=== PATIENT | female | born 1995 | race Two or more races ===

== ENCOUNTER 2016-11-02 13:14 | Inpatient (IN) | payer OTHER ==
[~2016-11-02] VITALS: Ht 165.1 cm; Wt 52.6 kg
[2016-11-02 14:25] LABS: MEAN CORPUSCULAR HEMOGLOBIN 27.9 pg (27.0-33.0); MEAN CORPUSCULAR VOLUME 84.5 fl (80.0-96.0); RED CELL DISTRIBUTION WIDTH 13.2 % (11.5-14.5); WHITE BLOOD COUNT 5.2 K/mm3 (4.0-10.0)
[2016-11-02 14:47] LABS: CONTROL LINE HCG INT CTR LINE PRESENT
[2016-11-02 14:53] LABS: METHADONE URINE NEGATIVE (NEGATIVE)
[2016-11-02 15:06] LABS: ALBUMIN 3.7 GM/DL (3.2-5.2); ALBUMIN/GLOBULIN RATIO 1.09 (1.00-1.93); ALKALINE PHOSPHATASE 82 U/L (45-117); ALT/SGPT 15 U/L (12-78); ANION GAP 6 MEQ/L (8-16); AST/SGOT 12 U/L (15-37); BILIRUBIN,DIRECT 0.2 MG/DL (0.0-0.2); BILIRUBIN,TOTAL 0.6 MG/DL (0.2-1.0); BLOOD UREA NITROGEN 11 MG/DL (7-18); CALCIUM LEVEL 8.8 MG/DL (8.5-10.1); CARBON DIOXIDE LEVEL 29 MEQ/L (21-32); CHLORIDE LEVEL 107 MEQ/L (98-107); CREATININE FOR GFR 0.48 MG/DL (0.55-1.02); GLOMERULAR FILTRATION RATE > 60.0 (>60); GLUCOSE, FASTING 89 MG/DL (70-105); POTASSIUM SERUM 3.9 MEQ/L (3.5-5.1); SODIUM LEVEL 142 MEQ/L (136-145); TOTAL PROTEIN 7.1 GM/DL (6.4-8.2)
[2016-11-02] MEDS ORDERED: ACETAMINOPHEN TAB 650MG DOSE (2X325MG) PO ONE (23:45)
[2016-11-03 14:31] VITALS: BP 123/62
[2016-11-03] MEDS ORDERED: MAALOX 30 ML SUSP *UDC PO PRN (15:45)
[2016-11-03] MEDS ORDERED: MOM 30ML SUSPENSION UDC PO PRN (15:45)
[2016-11-03] MEDS ORDERED: ACETAMINOPHEN TAB 650MG DOSE (2X325MG) PO PRN (15:45)
[2016-11-03] MEDS ORDERED: traZODone 50 MG TAB PO PRN (15:45)
[2016-11-04 06:36] VITALS: BP 114/60
--- NOTE | 2016-11-04 08:36 | HPEPDOC ---
Medical History and Physical Date of Admission Nov 03, 2016 at 13:50 History and Physical PCP: Martha ATTENDING: Dr. Terry Her HPI: 21yoF admitted to [facility] for unspecified depressive disorder, being medically examined today. No acute medical complaints today. Denies any fevers, chills, weakness, fatigue, GARNER, CP, SOB, cough, palpitations, abdominal pain, N/V /D or changes in bowel or bladder habits. PMHx: depression H/O self mutilation PSHX: denies SOCHX: Resides in: [facility], from [place] Marital Status: Kids: 1-year-old daughter Employment: Unemployed Tobacco use: Denies ETOH: Denies Illicit Drugs: Denies IV Drug Use: Denies Tattoos/piercing done unprofessionally: Denies FAMHX: Mother: Alive, well Father: Alive, well Siblings: 3 sisters, one brother Alive, history of depression/anxiety. Children: Alive, well Unexpected deaths due to medical reasons: None. ROS: As noted in HPI, otherwise 11pt ROS of systems reviewed and remarkable only for LMP 10/06/16 PE: GEN: 21 yo F, appears stated age. Well-nourished, well developed. No acute distress. Alert and oriented x 3. Pleasant, interactive. HEENT: Normocephalic, atraumatic. Pupils are equal, round, and reactive to light. Extraocular movements are intact. No nystagmus appreciated. Sclera are nonicteric. Conjunctiva without injection. Nose midline. Nasal turbinates without bogginess. EACs both patent BL. TMs both visualized and pacheco with good cone of light, no bulging or erythema. No facial asymmetry. Moist mucous membranes. Dentition fair. Pharynx pink and moist, no cobblestoning. Neck supple , trachea midline. No lymphadenopathy or thyromegaly appreciated. CHEST: Regular rate and rhythm, +S1, +S2 LUNGS: Clear to auscultation bilaterally. No wheezes, rales, or rhonchi. Breathing appears symmetric and easy. Patient is speaking in full sentences. No accessory muscle use. ABD: Round, soft, non-tender, non-distended. +Bowel sounds throughout. No rebound or guarding. No costovertebral angle tenderness. EXT: Pulses 2+ bilaterally dorsalis pedis and radial. No lower extremity edema appreciated. SKIN: Crestone, dry, warm. Capillary refill <2sec. No rashes. NEURO: Alert and oriented x 3. Cranial nerves III-XII are intact. No focal deficits appreciated. EKG: Pending A&P: 21yoF admitted to [facility] for unspecified depressive disorder 1. Psych. Plan per Psychiatry. Obtain baseline EKG to assure the safety of psychiatric medications as they can prolong the QT interval. 2. Anemia. Hemoglobin noted to be 11.5. Recheck CBC with iron studies, vitamin B12, folate. 3. Follow up with PCP on discharge. 4. Staff member Rosa present throughout exam. Vital Signs Vital Signs Date Time Temp Pulse Resp B/P (MAP) Pulse Ox O2 Delivery O2 Flow Rate FiO2 11/04/16 06:36 99.1 90 20 114/60 (78) 11/03/16 14:31 98 Room Air Laboratory Data Labs 24H Item Value Date Time White Blood Count 5.2 K/mm3 11/02/16 1416 Red Blood Count 4.11 M/mm3 11/02/16 1416 Hemoglobin 11.5 g/dl L 11/02/16 1416 Hematocrit 34.7 % L 11/02/16 1416 Mean Corpuscular Volume 84.5 fl 11/02/16 1416 Mean Corpuscular Hemoglobin 27.9 pg 11/02/16 1416 Mean Corpuscular Hemoglobin Concent 33.0 g/dl 11/02/16 1416 Red Cell Distribution Width 13.2 % 11/02/16 1416 Platelet Count 265 k/mm3 11/02/16 1416 Sodium Level 142 MEQ/L 11/02/16 1416 Potassium Level 3.9 MEQ/L 11/02/16 1416 Chloride Level 107 MEQ/L 11/02/16 1416 Carbon Dioxide Level 29 MEQ/L 11/02/16 1416 Anion Gap 6 MEQ/L L 11/02/16 1416 Blood Urea Nitrogen 11 MG/DL 11/02/16 1416 Creatinine 0.48 MG/DL L 11/02/16 1416 Glomerular Filtration Rate > 60.0 11/02/16 1416 Fasting Glucose 89 MG/DL 11/02/16 1416 Calcium Level 8.8 MG/DL 11/02/16 1416 Total Bilirubin 0.6 MG/DL 11/02/16 1416 Direct Bilirubin 0.2 MG/DL 11/02/16 1416 Aspartate Amino Transf (AST/SGOT) 12 U/L L 11/02/16 1416 Alanine Aminotransferase (ALT/SGPT) 15 U/L 11/02/16 1416 Alkaline Phosphatase 82 U/L 11/02/16 1416 Total Protein 7.1 GM/DL 11/02/16 1416 Albumin 3.7 GM/DL 11/02/16 141 Albumin/Globulin Ratio 1.09 11/02/16 141 Thyroid Stimulating Hormone (TSH) 1.330 uIU/ML 11/02/16 141 Human Chorionic Gonadotropin, Qual NEGATIVE 11/02/16 1416 Salicylates Level < 1.7 MG/DL L 11/02/16 1416 Urine Opiates Screen NEGATIVE 11/02/16 1416 Urine Methadone Screen NEGATIVE 11/02/16 1416 Acetaminophen Level < 2.0 UG/ML L 11/02/16 1416 Urine Barbiturates Screen NEGATIVE 11/02/16 1416 Urine Phencyclidine Screen NEGATIVE 11/02/16 1416 Urine Amphetamines Screen NEGATIVE 11/02/16 1416 Urine Benzodiazepines Screen NEGATIVE 11/02/16 1416 Urine Cocaine Metabolite Screen NEGATIVE 11/02/16 1416 Urine Cannabinoids Screen NEGATIVE 11/02/16 1416 Ethyl Alcohol Level < 0.003 % 11/02/16 1416 Home Medications No Active Prescriptions or Reported Meds Allergies Coded Allergies: No Known Allergies (Unverified , 11/02/16) Sena Art Nov 04, 2016 08:36
--- NOTE | 2016-11-04 09:20 | MHHPEPDOC ---
[facility] History & Physical History and Physical DATE OF ADMISSION: Nov 03, 2016 at 13:50 CHIEF COMPLAINT: "I was having a really bad day and my was about to leave for another month, so I had brief suicidal thoughts and I was fed up with the weight on my shoulders." HISTORY OF THE PRESENT ILLNESS: Patient is a 21-year-old female [employer] dependent who was brought to the emergency room by her due to feeling depressed and suicidal ideation sans plan or intent, informed ER staff that she had been experiencing symptoms of depression "for a long time." Patient denies history of prior psychiatric admissions and denies history of suicide attempt. Patient states she has had "1-2 episodes of brief suicidal thinking, notes symptoms have occurred during "low periods, and when I've had suicide thoughts they last about 5 seconds and it's just a thought, I never actually think about doing it, Thursday was the last time it happened and I just wanted to see someone to talk to." Patient indicates "low periods" occur approximately one time every 2 months adding "in between those periods I'm fine, mellow, I can handle things." Patient indicates low periods last approximately a day "until the situation is fixed." Patient states symptoms of depression started before or of child, notes intermittent sense of feeling "overwhelmed" has increased since of child. Patient indicates she attempted to seek outpatient therapy at [facility] and felt "blown off" after undergoing intake evaluation and then reportedly hearing no other word from clinic. Patient states she also attempted to access therapy through community based organization and was told she would have a 3 month wait. Patient reports experiencing an increase in the following symptoms within the past 2 weeks: Depression, anxiety, lethargy, anhedonia, hopelessness and hopelessness, feeling overwhelmed, passive suicidal ideation, and desire not to have leave home to go to month-long training. Patient rates current anxiety level as 2/10, prescient 0/10, denies suicidal and homicidal ideation, denies auditory or visual hallucinations, denies urge to engage in self-injurious behavior. Patient reports history of cutting wrist 1-2 times age 14 as a result of family turmoil. Patient reports history of intermittent discomfort in social settings, contrary to ER report, and indicates she is able to function and care for self and daughter, denies having concerns related to safety of child in the home. Patient denies history of panic , impulse control challenges, compulsive behavior, aggression or unsanctioned violence, and denies having access to weapons in the home. Patient denies symptoms of reexperiencing, avoidance, hypervigilance, denies hypomania and teressa symptoms, describes appetite as "good," denies challenges with sleep. Patient and have been at been in the [facility] for 4 years, have a 1-year-old daughter, patient indicates is supportive and is no longer going to training due to patient's hospitalization. PSYCHIATRIC REVIEW OF SYSTEMS: Affective: Euthymic Anxiety: Endorses low level anxiety Trauma: Denies Psychosis: Denies Personally: Engageable, cooperative PAST PSYCHIATRIC HISTORY: Prior Psychiatric Disorder: Denies Outpatient Treatment: Denies history of other than attempts made to access outpatient therapy at [facility] and at [facility] Suicidal/Self injurious: Self-injurious behavior times to age 14 denies history of suicide attempt Psychotropic Medication History: Denies ALLERGIES: Please see below. 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 PAST MEDICAL/SURGICAL HISTORY: Labs on admission indicate low Hgb, HCT, anion gap, AST, creatinine, PA is aware UDS negative HCG negative EKG pending VITAL SIGNS: B/P 114/60, P 90, R 20, T 99.1. MENTAL STATUS EXAMINATION: General appearance: Patient is a 21-year old female, who is pleasant and cooperative, easily engaged, appears mildly disheveled, dressed in hospital clothing, makes good eye contact, ambulates with steady gait, appears stated age. Speech: Of normal rate, rhythm, volume, spontaneous, coherent. Thought processes: Linear, logical, goal-directed. Thought content: Rational, logical, no tangentiality or paranoia noted. Abstract reasoning and computation: Appear intact. Description of associations: Intact. Description of abnormal or psychotic thoughts: Denies suicidal or homicidal ideation, denies auditory or visual hallucinations, does not appear to be responding to internal stimuli, does not endorse bizarre or paranoid ideation, denies preoccupation with violence or obsessions. Judgment: Limited. Insight: Limited. Orientation: A and O 3. Recent and remote memory: Intact. Attention span and concentration: Adequate. Fund of knowledge: Adequate. Mood: "Pretty good, I feel like myself." Affect: Constricted but brightens, congruent with mood. DIAGNOSES: Adjustment disorder with mixed anxiety and depressed mood, rule out MDD ASSESSMENT: Patient appears to be adjusting to unit, is visible, easily engaged , cooperative with staff, socializing appropriately with peers, and presents with no behavior management challenges. Patient admits to feelings of passive suicidality prior to admission, denies ever having plan or intent to harm self or others and states, "I think I just said something like "look at me, I need help, I need someone to talk to." Medication options were reviewed with patient who is declining psychotropic medications at this time citing lack of need, notes she would prefer to engage in outpatient psychotherapy prior to trialing antidepressant medication. Patient denies suicidal or homicidal ideation and verbalizes awareness of how to access supportive services on the unit if needed. Will monitor patient's response to the inpatient environment and need for medication, and will evaluate patient safety, resolution of suicidal ideation, discharge readiness. Patient indicates when prepared for discharge she would like to discharge home with and participate in outpatient psychotherapy at [facility] or adds outpatient community clinic if unable to get appointment on [facility]. PROBLEM LIST: Suicidal ideation Depression Anxiety Ineffective coping Poor impulse control Limited support INITIAL TREATMENT PLAN: 1. Patient was admitted on a 9.39 2. Complete history was obtained. 3. With patients permission, family will be contacted and database will be expanded. 4. Patients medication regimen will be reviewed and changed accordingly. 5. Patient will be provided with protected environment. 6. Patient will be treated with individual, group, and milieu therapies. 7. Patient will receive supportive psych-education. 8. Discharge planning will commence immediately. 9. Outpatient follow-up treatment will be strongly recommended. 10. The initial treatment plan will focus initially on: * Depression. * Risk for suicide. ESTIMATED LENGTH OF STAY: 5-7 DAYS. TIME SPENT COUNSELING AND COORDINATING INITIAL CARE: 50 minutes. Medications No Active Prescriptions or Reported Meds Allergies Coded Allergies: No Known Allergies (Unverified , 11/02/16) Rama Miranda Nov 04, 2016 09:20
[2016-11-04 18:17] VITALS: BP 125/63
[2016-11-05 06:36] VITALS: BP 103/49
--- NOTE | 2016-11-05 07:44 | ECGEPIP ---
Stationary ECG Study [facility] Test Date: 2016-11-04 Pat Name: EDGAR AMEZCUA Department: Room: [place] [address] Gender: F Music Assistant: SYDNEE : 1995 Requested By: Sena Art Order Number: [id number] Reading MD: Michael Molina Measurements Intervals Shannon Rate: 98 P: 58 TN: 143 QRS: 67 QRSD: 100 T: 40 QT: 320 QTc: 410 Interpretive Statements SINUS RHYTHM NO PRIOR Electronically Signed On 11-05-2016 7:44:07 EDT by Michael Molina
[2016-11-05 08:34] LABS: MEAN CORPUSCULAR HEMOGLOBIN 27.3 pg (27.0-33.0); MEAN CORPUSCULAR HGB CONC 32.6 g/dl (32.0-36.5); MEAN CORPUSCULAR VOLUME 83.9 fl (80.0-96.0); RED CELL DISTRIBUTION WIDTH 13.3 % (11.5-14.5); WHITE BLOOD COUNT 6.8 K/mm3 (4.0-10.0)
[2016-11-05 08:36] LABS: PERCENT SATURATION 4.9 % (13.2-37.4)
--- NOTE | 2016-11-05 09:21 | MHIPNPDOC ---
[facility] Progress Note Progress Note DATE OF SERVICE: 11/05/16 HISTORY: Patient is a 21-year-old female [employer] who was brought to the emergency room by her due to feeling depressed and suicidal ideation sans plan or intent, informed ER staff that she had been experiencing symptoms of depression "for a long time." Patient denies history of prior psychiatric admissions and denies history of suicide attempt. Patient states she has had "1- 2 episodes of brief suicidal thinking, notes symptoms have occurred during "low periods, and when I've had suicide thoughts they last about 5 seconds and it's just a thought, I never actually think about doing it, Thursday was the last time it happened and I just wanted to see someone to talk to." Salesperson [employer] met with patient today to assess treatment progress on inpatient unit. Patient reports current anxiety level 06/20, depression 05/20, denies suicidal or homicidal ideation, denies auditory or visual hallucinations, denies urge to engage in self-injurious behavior. Patient continues to deny need for psychotropic medications, verbalizes insight and indicates she is highly motivated to participate in outpatient psychotherapy to "learn better ways to cope with those times when I'm feeling overwhelmed." Patient states she is sleeping well, reports stable appetite, reports improvement in energy level and concentration focus. When asked about statements made in ER pertaining to lethargy, anhedonia, and apparent symptoms of social anxiety patient stated, "when I get anxious and loses energy and sometimes it feels socially awkward, but I'm never scared and I'm able to take care of myself and my child, adds the kind of thing I feel like I could work on in therapy." Patient indicates stay in hospital has been helpful and verbalizes desire to discharge to home tomorrow. Patient denies symptoms of physical pain and presents with no sign of acute distress at time of interaction. VITALS: See below NEW TEST RESULTS: 11/05/16 repeat labs indicated low Hgb and HCT, iron, transferrin, and ferritin, PA is aware PAST MEDICAL/SURGICAL HISTORY: Labs on admission indicate low Hgb, HCT, anion gap, AST, creatinine UDS negative HCG negative 11/03/16 EKG normal sinus rhythm no prior MENTAL STATUS EXAMINATION: General appearance: Patient is a 21-year old female, who is pleasant and cooperative, easily engaged, exhibits adequate personal hygiene, dressed in hospital clothing, makes good eye contact, ambulates with steady gait, appears stated age. Speech: Of normal rate, rhythm, volume, spontaneous, coherent. Thought processes: Linear, logical, goal-directed. Thought content: Rational, logical, no tangentiality or paranoia noted. Abstract reasoning and computation: Appear intact. Description of associations: Intact. Description of abnormal or psychotic thoughts: Denies suicidal or homicidal ideation, denies auditory or visual hallucinations, does not appear to be responding to internal stimuli, does not endorse bizarre or paranoid ideation, denies preoccupation with violence or obsessions. Judgment: Fair Insight: Fair Orientation: A and O 3. Recent and remote memory: Intact. Attention span and concentration: Adequate. Fund of knowledge: Adequate. Mood: "I feel a lot better, I feel like myself." Patient reports improvement to symptoms of anxiety and depression, no mood lability noted Affect: Full range, congruent with mood DIAGNOSES: Adjustment disorder with mixed anxiety and depressed mood, rule out MDD ASSESSMENT: Patient appears to be adjusting to unit, is visible, easily engaged , cooperative with staff, socializing appropriately with peers, and presents with no behavior management challenges. Patient admits to feelings of passive suicidality prior to admission, denies ever having plan or intent to harm self or others. Medication options were again reviewed with patient continues to indicates she does not need psychotropic medications, notes she would prefer to participate in outpatient psychotherapy, we'll then evaluate need for antidepressant medication if she and therapist feel is warranted. Patient denies suicidal or homicidal ideation and verbalizes awareness of how to access supportive services on the unit if needed. Will continue to monitor patient's response to the inpatient environment and need for medication, and will evaluate patient safety and discharge readiness. Patient indicates when prepared for discharge she would like to discharge to home with and participate in outpatient psychotherapy at [facility] or outpatient community clinic [place] MANAGEMENT PLAN: Encourage patient to consider taking psychotropic medication to address symptoms if appropriate Maintain safety precautions Patient to attend groups and participate in unit programming to develop coping strategies Engage patient in discharge planning process and arrange meeting with support system to ensure safe discharge planning when appropriate Patient to follow up with [facility] upon discharge TIME SPENT: 35 minutes Vital Signs Vital Signs Date Time Temp Pulse Resp B/P (MAP) Pulse Ox O2 Delivery O2 Flow Rate FiO2 11/05/16 06:36 98.3 74 18 103/49 (67) 11/04/16 14:54 Room Air 11/03/16 14:31 98 Laboratory Data 24H Labs Laboratory Tests 2 11/05/16 07:22: Iron Level 19L, Total Iron Binding Capacity 385, Transferrin % Saturation 4.9L, Ferritin 6L CBC/BMP Laboratory Tests 11/05/16 07:22 Red Blood Count 4.24, Mean Corpuscular Volume 83.9, Mean Corpuscular Hemoglobin 27.3, Mean Corpuscular Hemoglobin Concent 32.6, Red Cell Distribution Width 13.3 Current Medications Current Medications Acetaminophen (Tylenol Tab) 650 mg Q6HP PRN PO HEADACHE or DISCOMFORT; Start at 15:45; Stop 12/03/16 at 15:44 Al Hydrox/Mg Hydrox/Simethicone (Mylanta) 30 ml Q4HP PRN PO HEARTBURN/ INDIGESTION; Start 11/03/16 at 15:45; Stop 12/03/16 at 15:44 Ferrous Sulfate (Ferrous Sulfate) 325 mg DAILY PO ; Start 11/05/16 at 09:00; Stop 12/05/16 at 08:59 Home Med (Med Rec Complete!) ASDIRECTED XX ; Start 11/03/16 at 09:45; Stop at 09:45; Status DC Magnesium Hydroxide (Milk Of Magnesia) 30 ml DAILYPRN PRN PO CONSTIPATION; Start 11/03/16 at 15:45; Stop 12/03/16 at 15:44 Trazodone HCl (Desyrel) 50 mg QHSP PRN PO INSOMNIA; Start 11/03/16 at 15:45; Stop 12/03/16 at 15:44 Allergies Coded Allergies: No Known Allergies (Unverified , 11/02/16) Rama Miranda Nov 05, 2016 09:21
[2016-11-05] MEDS: FERROUS SULFATE 325MG TAB PO SCH (09:23)
[2016-11-05 11:29] LABS: FOLATE 21.4 NG/ML (>5.4)
[2016-11-05 18:11] VITALS: BP 120/70
[2016-11-06 06:46] VITALS: BP 128/75
[2016-11-06] MEDS: FERROUS SULFATE 325MG TAB PO SCH (08:51)
--- NOTE | 2016-11-06 09:15 | MHDSPDOC ---
[facility] Discharge Summary Discharge Summary DATE OF ADMISSION: Nov 03, 2016 at 13:50 DATE OF DISCHARGE: Nov 06, 2016 HISTORY: Patient is a 21-year-old female [employer] who was brought to the emergency room by her due to feeling depressed and suicidal ideation sans plan or intent, informed ER staff that she had been experiencing symptoms of depression "for a long time." Patient denies history of prior psychiatric admissions and denies history of suicide attempt. Patient states she has had "1- 2 episodes of brief suicidal thinking, notes symptoms have occurred during "low periods, and when I've had suicide thoughts they last about 5 seconds and it's just a thought, I never actually think about doing it, Thursday was the last time it happened and I just wanted to see someone to talk to." Patient indicates " low periods" occur approximately one time every 2 months adding "in between those periods I'm fine, mellow, I can handle things." Patient indicates low periods last approximately a day "until the situation is fixed." Patient states symptoms of depression started before or of child, notes intermittent sense of feeling "overwhelmed" has increased since of child. Patient indicates she attempted to seek outpatient therapy at [facility] and felt "blown off" after undergoing intake evaluation and then reportedly hearing no other word from clinic. Patient states she also attempted to access therapy through [facility] and was told she would have a 3 month wait. Patient reports experiencing an increase in the following symptoms within the past 2 weeks: Depression, anxiety, lethargy, anhedonia, hopelessness and hopelessness, feeling overwhelmed, passive suicidal ideation, and desire not to have leave home to go to month-long training. Patient rates current anxiety level as 2/10, prescient 0/10, denies suicidal and homicidal ideation, denies auditory or visual hallucinations, denies urge to engage in self- injurious behavior. Patient reports history of cutting wrist 1-2 times age 14 as a result of family turmoil. Patient reports history of intermittent discomfort in social settings, contrary to ER report, and indicates she is able to function and care for self and daughter, denies having concerns related to safety of child in the home. Patient denies history of panic, impulse control challenges, compulsive behavior, aggression or unsanctioned violence, and denies having access to weapons in the home. Patient denies symptoms of reexperiencing, avoidance, hypervigilance, denies hypomania and teressa symptoms, describes appetite as "good," denies challenges with sleep. Patient and have been at been in the [facility] [employer] for 4 years, have a 1-year-old daughter , patient indicates is supportive and is no longer going to training due to patient's hospitalization. PAST PSYCHIATRIC HISTORY: Prior Psychiatric Disorder: Denies Outpatient Treatment: Denies history of other than attempts made to access outpatient therapy at [facility] and at [facility] Suicidal/Self injurious: Self-injurious behavior times to age 14 denies history of suicide attempt Psychotropic Medication History: Denies PAST MEDICAL/SURGICAL HISTORY: Labs on admission indicate low Hgb, HCT, anion gap, AST, creatinine 11/05/16 repeat labs indicated low Hgb and HCT, iron, transferrin, and ferritin, PA has addressed UDS negative HCG negative 11/03/16 EKG normal sinus rhythm no prior FAMILY PSYCHIATRIC HISTORY: Sister - anxiety Brother - depression SOCIAL HISTORY: Early Relations/development: Raised by parents in [place], parents age 8, was then raised by father Sibling order: Youngest child, has 1 brother and 3 sisters Paternal relationships: Supportive and positive Education: High school graduate Occupational: Currently unemployed, [id number] mother, history of working in retail Legal: Denies Martial: 2 years, has been in relationship with 7 years, has 1 child who is 1-year-old Economic: Denies tension Supports: Indicates family and spouse are supportive Abuse/trauma: Denies history of abuse, trauma, or witnessing domestic violence in the home while growing up SUBSTANCE ABUSE HISTORY: Patient states she consumes approximately one beer per month socially, denies history of excessive alcohol consumption, denies history of other substance use or abuse. TREATMENT PROGRESS ON UNIT: Patient has adjusted to unit well, has been visible , easily engaged, cooperative with staff, has socialized appropriately with peers, and has participated well in unit programming. Patient admitted to feelings of passive suicidality prior to admission, denies ever having plan or intent to harm self or others, verbalizes insight as to feeling "overwhelmed" at times, and desires to process feelings in outpatient psychotherapy setting. Patient has consistently denied need for psychotropic medications during her stay (contrary to entry made under "nursing notes" which was made in error; patient did not utilize anxiolytic during stay), and has indicated she will consider taking medications if outpatient provider feels is necessary after she has trialed psychotherapy. Patient denies symptoms of anxiety and depression, denies suicidal homicidal ideation, denies auditory or visual hallucinations, denies urge to engage in self-injurious behavior. Patient further denies irritability, agitation, impulsivity, and mood lability. Patient states she is sleeping well and reports improvement to concentration and focus and energy level, describes appetite is stable. Patient states she feels she has learned valuable coping skills during her inpatient hospitalization and she is future oriented and goal directed. Patient is able to effectively engage in safety planning process and verbalizes concrete strategies for mitigating symptoms of anxiety, depression, or suicidal ideation should they reemerge. Patient is requesting discharge to home today with and family meeting has been completed, has denied having concerns pertaining to patient's discharge to home. Patient is requesting to participate in outpatient psychotherapy and is aware she will be receiving services at [facility] outpatient behavioral [facility]. Patient verbalizes understanding of and agreement with discharge plan. MENTAL STATUS EXAMINATION ON DISCHARGE: General appearance: Patient is a 21-year old female, who is pleasant and cooperative, easily engaged, exhibits adequate personal hygiene, dressed in hospital clothing, makes good eye contact, ambulates with steady gait, appears stated age. Speech: Of normal rate, rhythm, volume, spontaneous, coherent. Thought processes: Linear, logical, goal-directed. Thought content: Rational, logical, no tangentiality or paranoia noted. Abstract reasoning and computation: Appear intact. Description of associations: Intact. Description of abnormal or psychotic thoughts: Denies suicidal or homicidal ideation, denies auditory or visual hallucinations, does not appear to be responding to internal stimuli, does not endorse bizarre or paranoid ideation, denies preoccupation with violence or obsessions. Judgment: Adequate Insight: Adequate Orientation: A and O 3. Recent and remote memory: Intact. Attention span and concentration: Adequate. Fund of knowledge: Adequate. Mood: "I feel a lot better, I feel like myself, I'm ready to deal with things in therapy, and I'm ready to go home." Patient denies symptoms of anxiety or depression, no mood lability noted Affect: Full range, brightens frequently and appropriately congruent with mood CONDITION ON DISCHARGE: Stable, no suicidal or homicidal ideation DIAGNOSES ON DISCHARGE: Adjustment disorder with mixed anxiety and depressed mood, rule out MDD MEDICATIONS ON DISCHARGE: See below, patient has declined psychotropic medications (contrary to entry made under "nursing notes" which was made in error; patient did not utilize anxiolytic during stay. FOLLOW UP PLAN: Patient to discharge to home today with and will follow- up for outpatient psychotherapy through [facility] Patient to follow-up with PCM within 5-7 days of discharge TIME SPENT COORDINATING CARE: 25 minutes Vital Signs/I&Os Vital Signs Date Time Temp Pulse Resp B/P (MAP) Pulse Ox O2 Delivery O2 Flow Rate FiO2 11/06/16 06:46 98.7 97 18 128/75 (92) 11/04/16 14:54 Room Air 11/03/16 14:31 98 Medications Scheduled Ferrous Sulfate (Ferrous Sulfate) 325 Mg Tab, 325 MG PO DAILY for anemia, #7 Follow-up with PCM to evaluate need for ongoing supplementation Allergies Coded Allergies: No Known Allergies (Unverified , 11/02/16) Rama Miranda Nov 06, 2016 09:15
[2016-11-06] MEDS ORDERED: FERR325T PO (13:04)
== END 2016-11-06 13:15 | disposition home or self-care (01) | DRG 882 ==
LOC: M ED 15:54 → M ED INP 11-03 13:50 → M PSY 11-03 14:25
PROVIDERS: ADMIT Psychiatry & Neurology Psychiatry; ATTEND Psychiatry & Neurology Psychiatry
DX: F43.23 Adjustment disorder with mixed anxiety and depressed mood (principal); D64.9 Anemia, unspecified